=== PATIENT | male | born 1960 | race African-American/Black ===

== ENCOUNTER 2016-12-16 13:42 | Inpatient (IN) | payer SELFPAY ==
[~2016-12-16] VITALS: Ht 185.4 cm; Wt 99.8 kg
[2016-12-16 15:13] VITALS: BP 137/90
[2016-12-16] MEDS ORDERED: LISI1TAB5 PO (15:33)
[2016-12-16 16:19] LABS: BASO % 1 % (0-3); EOS % 1 % (0-3); HEMATOCRIT 39.3 % (39.0-53.0); HEMOGLOBIN 13.1 g/dL (13.0-17.5); LYMPH # 1.8 x10^3/uL (1.0-4.8); LYMPH % 20 % (24-48); MEAN CORPUSCULAR HEMOGLOBIN 30 pg (25-35); MEAN CORPUSCULAR HGB CONC 33 g/dL (31-37); MEAN CORPUSCULAR VOLUME 91 fL (79-100); MONO % 13 % (0-9); NEUT % 66 % (31-73); PLATELET COUNT 210 x10^3/uL (140-400); RED BLOOD COUNT 4.32 x10^6/uL (4.30-5.70); RED CELL DISTRIBUTION WIDTH 13.4 % (11.5-14.5); WHITE BLOOD COUNT 8.8 x10^3/uL (4.0-11.0)
[2016-12-16 16:35] LABS: CREATININE 1.2 mg/dL (0.7-1.3); GFR 76.1; POTASSIUM 3.8 mmol/L (3.5-5.1)
--- NOTE | 2016-12-16 16:36 | PDOC1 ---
History and Physical Date of Admission Date of Admission DATE: 12/16/16 TIME: 16:31 Identification/Chief Complaint Chief Complaint lower leg pain Problems: Source Source: Chart review, Patient History of Present Illness History of Present Illness direct admit from Dr. Fatemeh gilbert. He is recently released [facility], 2 weeks ago. The few days before that, he had a new tattoo done there , homemade tattoo on the left lateral calf. He is worried about the material used for ink, and feels that his body is rejecting it. He has a few days of worsening left lower pain with swelling, some surrrounding erythema, and skin eruption today. Abcess detected in surg clinic, large dressing now placed, pain improved pain 11/23 Past Medical History Cardiovascular: HTN Pulmonary: No pertinent hx GI: No pertinent hx Heme/Onc: No pertinent hx Hepatobiliary: No pertinent hx Psych: No pertinent hx Past Surgical History Past Surgical History: No pertinent history Family History Family History: Coronary Artery Disease, Heart Disease Family History: Parent Social History Smoke: No ALCOHOL: none Drugs: None Current Problem List Problem List Problems Medical Problems: (1) Cellulitis and abscess of leg Status: Acute Problems: Current Medications Current Medications Current Medications Vancomycin HCl (Vanco Per Pharmacy) 1 each PRN DAILY PRN [facility] SEE COMMENTS; Start 12/16/16 at 16:00 Active Scripts Active Reported Lisinopril-Hctz 20-12.5 Mg Tab (Lisinopril/Hydrochlorothiazide) 1 Each Tablet 1 Tab PO DAILY Allergies Allergies: Coded Allergies: No Known Drug Allergies (Unverified , 12/16/16) ROS General: YES: Chills, No: Appetite, Fatigue, Malaise, Night Sweats, Other PSYCHOLOGICAL ROS: No: Anxiety, Behavioral Disorder, Concentration difficultie , Decreased libido, Depression, Disorientation, Hallucinations, Hostility, Irritablity, Memory difficulties, Mood Swings, Obsessive thoughts, Other, Physical abuse, Sexual abuse, Sleep disturbances, Suicidal ideation Eyes: No Blurry vision, No Decreased vision, No Double vision, No Dry eyes, No Excessive tearing, No Eye Pain, No Itchy Eyes, No Loss of vision, No Other, No Photophobia, No Scotomata, No Uses contacts, No Uses glasses HEENT: No: Epistaxis, Heacaches, Hearing change, Nasal congestion, Nasal discharge, Oral lesions, Other, Sinus pain, Sneezing, Snoring, Sore Throat, Tinnitus, Vertigo, Visual Changes, Vocal changes Respiratory: No: Cough, Hemoptysis, Orthopnea, Other, Pleuritic Pain, SOB with excertion, Shortness of breath, Sputum Changes, Stridor, Tachypnea, Wheezing Cardiovascular: No Chest Pain, No Edema, No Lt Headedness, No Orthopnea, No Other, No Palpitations, No Paroxysmal Noc. Dyspnea Gastrointestinal: No Abdominal Pain, No Constipation, No Diarrhea, No Hematochezia, No Melena, No Nausea, No Other, No Vomiting Genitourinary: No , No , No , No , No , No , No , No Discharge, No Dysuria, No Flank Pain, No Frequency, No Hematuria, No Incontinence, No Other, No Pain, No Retention, No Urgency Musculoskeletal: Yes Muscle Pain, No Gait Disturbance, No Joint Pain, No Joint Stiffness, No Joint Swelling, No Other, No Pain In:, No Swelling In: Neurological: No Behavorial Changes, No Bowel/Bladder ControlChng, No Confusion , No Dizziness, No Gait Disturbance, No Headaches, No Impaired Coord/balance, No Memory Loss, No Numbness/Tingling, No Other, No Seizures, No Speech Problems , No Tremors, No Visual Changes, No Weakness Skin: Yes Rash, Yes Skin Lesion Changes Physical Exam General: Alert, Oriented X3, Cooperative, No acute distress HEENT: Atraumatic, PERRLA, EOMI Lungs: Clear to auscultation, Normal air movement Heart: S1S2, no gallops, no murmurs Abdomen: Normal bowel sounds, Soft, No tenderness Rectal Exam: not examined Extremities: No clubbing, No cyanosis, Normal pulses Skin: Other (erythema and swelling left of lower leg, tender w/ drainage) Neuro: Normal speech, Normal tone, Sensation intact Psych/Mental Status: Mental status NL Vitals Vitals Vital Signs Date Time Temp Pulse Resp B/P Pulse Ox O2 Delivery O2 Flow Rate FiO2 12/16/16 15:13 97.6 94 137/90 97 Room Air 97.6 Labs Labs Laboratory Tests Test 12/16/16 16:05 White Blood Count 8.8x10^3/uL (4.0-11.0) Red Blood Count 4.32x10^6/uL (4.30-5.70) Hemoglobin 13.1g/dL (13.0-17.5) Hematocrit 39.3% (39.0-53.0) Mean Corpuscular Volume 91fL (79-100) Mean Corpuscular Hemoglobin 30pg (25-35) Mean Corpuscular Hemoglobin Concent 33g/dL (31-37) Red Cell Distribution Width 13.4% (11.5-14.5) Platelet Count 210x10^3/uL (140-400) Neutrophils (%) (Auto) 66% (31-73) Lymphocytes (%) (Auto) 20% (24-48) Monocytes (%) (Auto) 13% (0-9) Eosinophils (%) (Auto) 1% (0-3) Basophils (%) (Auto) 1% (0-3) Neutrophils # (Auto) 5.8x10^3uL (1.8-7.7) Lymphocytes # (Auto) 1.8x10^3/uL (1.0-4.8) Monocytes # (Auto) 1.2x10^3/uL (0.0-1.1) Eosinophils # (Auto) 0.0x10^3/uL (0.0-0.7) Basophils # (Auto) 0.0x10^3/uL (0.0-0.2) Laboratory Tests Test 12/16/16 16:05 White Blood Count 8.8x10^3/uL (4.0-11.0) Red Blood Count 4.32x10^6/uL (4.30-5.70) Hemoglobin 13.1g/dL (13.0-17.5) Hematocrit 39.3% (39.0-53.0) Mean Corpuscular Volume 91fL (79-100) Mean Corpuscular Hemoglobin 30pg (25-35) Mean Corpuscular Hemoglobin Concent 33g/dL (31-37) Red Cell Distribution Width 13.4% (11.5-14.5) Platelet Count 210x10^3/uL (140-400) Neutrophils (%) (Auto) 66% (31-73) Lymphocytes (%) (Auto) 20% (24-48) Monocytes (%) (Auto) 13% (0-9) Eosinophils (%) (Auto) 1% (0-3) Basophils (%) (Auto) 1% (0-3) Neutrophils # (Auto) 5.8x10^3uL (1.8-7.7) Lymphocytes # (Auto) 1.8x10^3/uL (1.0-4.8) Monocytes # (Auto) 1.2x10^3/uL (0.0-1.1) Eosinophils # (Auto) 0.0x10^3/uL (0.0-0.7) Basophils # (Auto) 0.0x10^3/uL (0.0-0.2) VTE Prophylaxis Ordered VTE Prophylaxis Devices: No VTE Pharmacological Prophylaxi: No Assessment/Plan Assessment/Plan cellulitis with abcess, left lateral calf check labs blood cx if febrile surg consult to follow start IV vanco per pharmacy admit RACHAEL ALONSO MD December 16, 2016 16:36
[2016-12-16] MEDS ORDERED: VANCOMYCIN 2 GM in IV NORMAL SALINE 500ML BAG 500 ML IV ONE (17:30)
--- NOTE | 2016-12-16 17:52 | PDOC2 ---
CONSULT Date of Consult Date of Consult DATE: 12/16/16 TIME: 17:49 Reason for Consult Reason for Consult: left leg abscess Identification/Chief Complaint Chief Complaint leg redness Source Source: Patient History of Present Illness Reason for Visit: 56 yo male whom I saw in the office earlier today with 1-2 week hx of worsening left leg redness, swelling and pain. exam c/w cellulitis and abscess. admitted for iv abx and i and d. see my office note for more details. Past Medical History Cardiovascular: HTN Pulmonary: No pertinent hx GI: No pertinent hx Heme/Onc: No pertinent hx Hepatobiliary: No pertinent hx Psych: No pertinent hx Past Surgical History Past Surgical History: No pertinent history Family History Family History: Coronary Artery Disease, Heart Disease Social History Social History: Parent No ALCOHOL: none Drugs: None Current Problem List Problem List Problems Medical Problems: (1) Cellulitis and abscess of leg Status: Acute Current Medications Current Medications Current Medications Vancomycin HCl 1 each 1 each PRN DAILY PRN MC SEE COMMENTS; Start 12/16/16 at 16 :00 Vancomycin HCl/ Sodium Chloride (Iv Sodium Chloride 0.9% 500ml Bag) 500 ml @ 250 mls/hr 1X ONCE IV ; Start 12/16/16 at 17:30; Stop 12/16/16 at 19:29 Active Scripts Active Reported Lisinopril-Hctz 20-12.5 Mg Tab (Lisinopril/Hydrochlorothiazide) 1 Each Tablet 1 Tab PO DAILY Allergies Allergies: Coded Allergies: No Known Drug Allergies (Unverified , 12/16/16) Physical Exam General: Oriented X3, Cooperative Extremities: Other (left leg with extensive erythema, induration, fluctuance lateral lower leg.) Vitals VITALS Vital Signs Date Time Temp Pulse Resp B/P Pulse Ox O2 Delivery O2 Flow Rate FiO2 12/16/16 16:50 Room Air 12/16/16 15:13 97.6 94 137/90 97 97.6 Labs Labs Laboratory Tests Test 12/16/16 16:05 White Blood Count 8.8x10^3/uL (4.0-11.0) Red Blood Count 4.32x10^6/uL (4.30-5.70) Hemoglobin 13.1g/dL (13.0-17.5) Hematocrit 39.3% (39.0-53.0) Mean Corpuscular Volume 91fL (79-100) Mean Corpuscular Hemoglobin 30pg (25-35) Mean Corpuscular Hemoglobin Concent 33g/dL (31-37) Red Cell Distribution Width 13.4% (11.5-14.5) Platelet Count 210x10^3/uL (140-400) Neutrophils (%) (Auto) 66% (31-73) Lymphocytes (%) (Auto) 20% (24-48) Monocytes (%) (Auto) 13% (0-9) Eosinophils (%) (Auto) 1% (0-3) Basophils (%) (Auto) 1% (0-3) Neutrophils # (Auto) 5.8x10^3uL (1.8-7.7) Lymphocytes # (Auto) 1.8x10^3/uL (1.0-4.8) Monocytes # (Auto) 1.2x10^3/uL (0.0-1.1) Eosinophils # (Auto) 0.0x10^3/uL (0.0-0.7) Basophils # (Auto) 0.0x10^3/uL (0.0-0.2) Sodium Level 136mmol/L (136-145) Potassium Level 3.8mmol/L (3.5-5.1) Chloride Level 101mmol/L (98-107) Carbon Dioxide Level 26mmol/L (21-32) Anion Gap 9 (6-14) Blood Urea Nitrogen 12mg/dL (8-26) Creatinine 1.2mg/dL (0.7-1.3) Estimated GFR (Cockcroft-Gault) 76.1 Glucose Level 98mg/dL (70-99) Calcium Level 10.0mg/dL (8.5-10.1) Laboratory Tests Test 12/16/16 16:05 White Blood Count 8.8x10^3/uL (4.0-11.0) Red Blood Count 4.32x10^6/uL (4.30-5.70) Hemoglobin 13.1g/dL (13.0-17.5) Hematocrit 39.3% (39.0-53.0) Mean Corpuscular Volume 91fL (79-100) Mean Corpuscular Hemoglobin 30pg (25-35) Mean Corpuscular Hemoglobin Concent 33g/dL (31-37) Red Cell Distribution Width 13.4% (11.5-14.5) Platelet Count 210x10^3/uL (140-400) Neutrophils (%) (Auto) 66% (31-73) Lymphocytes (%) (Auto) 20% (24-48) Monocytes (%) (Auto) 13% (0-9) Eosinophils (%) (Auto) 1% (0-3) Basophils (%) (Auto) 1% (0-3) Neutrophils # (Auto) 5.8x10^3uL (1.8-7.7) Lymphocytes # (Auto) 1.8x10^3/uL (1.0-4.8) Monocytes # (Auto) 1.2x10^3/uL (0.0-1.1) Eosinophils # (Auto) 0.0x10^3/uL (0.0-0.7) Basophils # (Auto) 0.0x10^3/uL (0.0-0.2) Sodium Level 136mmol/L (136-145) Potassium Level 3.8mmol/L (3.5-5.1) Chloride Level 101mmol/L (98-107) Carbon Dioxide Level 26mmol/L (21-32) Anion Gap 9 (6-14) Blood Urea Nitrogen 12mg/dL (8-26) Creatinine 1.2mg/dL (0.7-1.3) Estimated GFR (Cockcroft-Gault) 76.1 Glucose Level 98mg/dL (70-99) Calcium Level 10.0mg/dL (8.5-10.1) Assessment/Plan Assessment/Plan left lower leg abscess and cellulitis. agree with iv abx and plan I and D in OR tomorrow. r/b d/w him in office earlier today. LORENE CACERES MD December 16, 2016 17:52
[2016-12-16] MEDS ORDERED: ONDANSETRON PF 4 MG/2 ML VIAL. IV PRN (18:00)
[2016-12-16] MEDS ORDERED: HYDROmorphone 2 MG/ML VIAL IVP PRN (18:00)
[2016-12-16] MEDS ORDERED: oxyCODONE/APAP 5/325 1 TAB TABLET PO PRN (18:00)
[2016-12-16] MEDS: VANCOMYCIN PER PHARMACY MC PRN (18:31)
[2016-12-16 19:20] VITALS: BP 117/81
[2016-12-16 23:29] VITALS: BP 138/78
[2016-12-17] VITALS (12 sets, daily range): BP systolic 13–130; BP diastolic 66–84
[2016-12-17] MEDS: VANCOMYCIN 1.5 GM in IV NORMAL SALINE 500ML BAG 500 ML IV SCH ×2 (06:00→18:13)
[2016-12-17] MEDS ORDERED: BUPIVAC MPF-EPI 0.5%-1:200000 30 ML VIAL. ONE (07:07)
--- NOTE | 2016-12-17 07:32 | ACF ---
Admission Forms Criteria CELLULITIS Clinical Indications for Admission to Inpatient Care (Place 'X' for any and all applicable criteria): Admission is indicated for ANY ONE of the following(1)(2)(3)(4)(5): [X]I. Limb-threatening infection [ ]II. High-risk comorbid condition as indicated by ANY ONE of the following: [ ]a) Uncontrolled diabetes (eg, HbA1c greater than 10% (0.1)) [ ]b) Cirrhosis [ ]c) Neutropenia [ ]d) Asplenia [ ]e) Immunosuppression [ ]f) Symptomatic heart failure [ ]III. Failure of outpatient therapy as indicated by ALL of the following: [ ]a) Progression or no improvement after adequate trial (minimum of 48 hours, with longer period for stable lower extremity infection) [ ]b) Adequate antibiotic regimen as indicated by use of ANY ONE of the following: [ ]i) First-generation cephalosporin (e.g., cephalexin) [ ]ii) Antistaphylococcal penicillin (e.g., dicloxacillin) [ ]iii) Penicillin-allergic patient regimen (clindamycin, extended-spectrum fluoroquinolone, or doxycycline) [ ]iv) Resistant organism (eg, methicillin-resistant Staphylococcus aureus) regimen (6) [ ]c) Outpatient intravenous therapy regimen is not appropriate due to ANY ONE of the following. (7)(8)(9)(10): [ ]i) It was tried and was not successful (eg, progression of infection). [ ]ii) It is not available or cannot be arranged in a clinically appropriate time frame (e.g., the next day). [ ]iii) Clinical presentation (eg, acuity of infection, rapidity of progression, confirmed or suspected bacteremia) is judged to require ALL of the following: [ ]1) Immediate initiation of intravenous therapy ( eg, cannot wait for next day) [ ]2) Intensity of patient monitoring and observation (eg, vital sign measurement, checks for infection progression) that cannot be provided at other than inpatient level of care [ ]IV. Mental status changes [ ]V. Bacteremia [ ]. Hemodynamic instability [ ]VII. Suspected necrotizing soft tissue infection (e.g., gas in tissue)(11)( 12) [ ]VIII. Orbital infection (13)(14) [ ]IX. Associated surgical procedure (e.g., abscess drainage, debridement) not amenable to outpatient, emergency department, or observation care [ ]X. Cutaneous gangrene [ ]XI. High fever (temperature greater than 39.5 degrees C (103.1 degrees F) (oral)) not responsive to outpatient, emergency department, or observation care therapy [ ]XIII. Inpatient admission required rather than observation care (Also use Cellulitis: Observation Care as appropriate) because of ANY ONE of the following : [ ]a) Periorbital or perineal infection that is severe or worsening [ ]b) Severe pain requiring acute inpatient management [ ]c) IV fluid to replace significant ongoing (e.g., for over 24 hours) losses (greater than 3L/m2 per day) [ ]d) Compartment syndrome monitoring (17) [ ]e) Strict or protective (eg, laminar flow) isolation [ ]f) Urgent debridement or skin grafting [ ]g) Bone or joint debridement [ ]h) Immediate inpatient surgery [ ]i) Other condition, treatment or monitoring requiring inpatient admission Extended stay beyond goal length of stay may be needed for (1)(18): [ ]a) Necrotizing soft tissue infection or fasciitis [ ]b) Gram-negative infection [ ]c) Methicillin-resistant Staphylococcal aureus (MRSA) infection [ ]d) Peripheral venous insufficiency with cellulitis [ ]e) Extensive edema [ ]f) Sepsis or continued Hemodynamic instability [ ]g) Continued high fever or mental status change [ ]h) Bacteremia [ ]i) Active serious comorbid conditions ( eg, heart failure, renal insufficiency) The original [employer] content created by [employer] has been revised. The portions of the content which have been revised are identified through the use of italic text or in bold, and [facility] has neither reviewed nor approved the modified material. All other unmodified content is copyright [facility] [employer] Please see references footnoted in the original [employer] [employer] edition 2016 Admission Criteria Met?: Yes ISAI WILKINS December 17, 2016 07:32
[2016-12-17] MEDS ORDERED: IV RINGERS,LACTATED 1000ML 1,000 ML IV SCH (09:47)
[2016-12-17] MEDS ORDERED: fentaNYL PF VIAL 100 MCG/2 ML VIAL IV PRN ×2 (10:00)
[2016-12-17] MEDS ORDERED: HYDROmorphone 2 MG/ML VIAL IV PRN (10:00)
[2016-12-17] MEDS ORDERED: MORPHINE SULFATE 2 MG/ML DISP.SYRIN. IV PRN (10:00)
[2016-12-17] MEDS ORDERED: ONDANSETRON PF 4 MG/2 ML VIAL. IV PRN ×2 (10:00→11:00)
[2016-12-17] MEDS ORDERED: LIDOCAINE 1% 1 ML SYRINGE. ID PRN (10:00)
[2016-12-17] MEDS ORDERED: PROCHLORPERAZINE 10 MG/2 ML VIAL. IV PRN (10:00)
[2016-12-17] MEDS ORDERED: ACETAMINOPHEN 325 MG TABLET. PO PRN (11:00)
[2016-12-17] MEDS ORDERED: hydrALAZINE 20 MG/ML VIAL. IVP PRN (11:00)
--- NOTE | 2016-12-17 11:01 | PDOC ---
PROGRESS NOTES Chief Complaint Chief Complaint cellulitis with abcess, left lateral calf HTN plan: fu with sx, i and d on 12/17 cont vanco for now, fu cx hold HTN meds, pain control History of Present Illness History of Present Illness left leg pain Vitals Vitals Vital Signs Date Time Temp Pulse Resp B/P (MAP) Pulse Ox O2 Delivery O2 Flow Rate FiO2 12/17/16 08:00 Room Air 12/17/16 07:15 98.5 84 20 114/72 (86) 98 98.5 Physical Exam General: Oriented X3, Cooperative Heart: Regular rate, Normal S1 Lungs: Clear Abdomen: Normal bowel sounds, Soft, No tenderness Extremities: Other (left leg with extensive erythema, induration, fluctuance lateral lower leg.) Skin: Other (erythema and swelling left of lower leg, tender w/ drainage) Labs LABS Laboratory Tests Test 12/16/16 16:05 White Blood Count 8.8 x10^3/uL (4.0-11.0) Red Blood Count 4.32 x10^6/uL (4.30-5.70) Hemoglobin 13.1 g/dL (13.0-17.5) Hematocrit 39.3 % (39.0-53.0) Mean Corpuscular Volume 91 fL (79-100) Mean Corpuscular Hemoglobin 30 pg (25-35) Mean Corpuscular Hemoglobin Concent 33 g/dL (31-37) Red Cell Distribution Width 13.4 % (11.5-14.5) Platelet Count 210 x10^3/uL (140-400) Neutrophils (%) (Auto) 66 % (31-73) Lymphocytes (%) (Auto) 20 % (24-48) Monocytes (%) (Auto) 13 % (0-9) Eosinophils (%) (Auto) 1 % (0-3) Basophils (%) (Auto) 1 % (0-3) Neutrophils # (Auto) 5.8 x10^3uL (1.8-7.7) Lymphocytes # (Auto) 1.8 x10^3/uL (1.0-4.8) Monocytes # (Auto) 1.2 x10^3/uL (0.0-1.1) Eosinophils # (Auto) 0.0 x10^3/uL (0.0-0.7) Basophils # (Auto) 0.0 x10^3/uL (0.0-0.2) Sodium Level 136 mmol/L (136-145) Potassium Level 3.8 mmol/L (3.5-5.1) Chloride Level 101 mmol/L (98-107) Carbon Dioxide Level 26 mmol/L (21-32) Anion Gap 9 (6-14) Blood Urea Nitrogen 12 mg/dL (8-26) Creatinine 1.2 mg/dL (0.7-1.3) Estimated GFR (Cockcroft-Gault) 76.1 Glucose Level 98 mg/dL (70-99) Calcium Level 10.0 mg/dL (8.5-10.1) Review of Systems Review of Systems no fever, chills, sob or chest pain Assessment and Plan Assessmemt and Plan Problems Medical Problems: (1) Cellulitis and abscess of leg Status: Acute Problems: Comment Review of Relevant I have reviewed the following items gita (where applicable) has been applied. Labs Laboratory Tests Test 12/16/16 16:05 White Blood Count 8.8 x10^3/uL (4.0-11.0) Red Blood Count 4.32 x10^6/uL (4.30-5.70) Hemoglobin 13.1 g/dL (13.0-17.5) Hematocrit 39.3 % (39.0-53.0) Mean Corpuscular Volume 91 fL (79-100) Mean Corpuscular Hemoglobin 30 pg (25-35) Mean Corpuscular Hemoglobin Concent 33 g/dL (31-37) Red Cell Distribution Width 13.4 % (11.5-14.5) Platelet Count 210 x10^3/uL (140-400) Neutrophils (%) (Auto) 66 % (31-73) Lymphocytes (%) (Auto) 20 % (24-48) Monocytes (%) (Auto) 13 % (0-9) Eosinophils (%) (Auto) 1 % (0-3) Basophils (%) (Auto) 1 % (0-3) Neutrophils # (Auto) 5.8 x10^3uL (1.8-7.7) Lymphocytes # (Auto) 1.8 x10^3/uL (1.0-4.8) Monocytes # (Auto) 1.2 x10^3/uL (0.0-1.1) Eosinophils # (Auto) 0.0 x10^3/uL (0.0-0.7) Basophils # (Auto) 0.0 x10^3/uL (0.0-0.2) Sodium Level 136 mmol/L (136-145) Potassium Level 3.8 mmol/L (3.5-5.1) Chloride Level 101 mmol/L (98-107) Carbon Dioxide Level 26 mmol/L (21-32) Anion Gap 9 (6-14) Blood Urea Nitrogen 12 mg/dL (8-26) Creatinine 1.2 mg/dL (0.7-1.3) Estimated GFR (Cockcroft-Gault) 76.1 Glucose Level 98 mg/dL (70-99) Calcium Level 10.0 mg/dL (8.5-10.1) Laboratory Tests Test 12/16/16 16:05 White Blood Count 8.8 x10^3/uL (4.0-11.0) Red Blood Count 4.32 x10^6/uL (4.30-5.70) Hemoglobin 13.1 g/dL (13.0-17.5) Hematocrit 39.3 % (39.0-53.0) Mean Corpuscular Volume 91 fL (79-100) Mean Corpuscular Hemoglobin 30 pg (25-35) Mean Corpuscular Hemoglobin Concent 33 g/dL (31-37) Red Cell Distribution Width 13.4 % (11.5-14.5) Platelet Count 210 x10^3/uL (140-400) Neutrophils (%) (Auto) 66 % (31-73) Lymphocytes (%) (Auto) 20 % (24-48) Monocytes (%) (Auto) 13 % (0-9) Eosinophils (%) (Auto) 1 % (0-3) Basophils (%) (Auto) 1 % (0-3) Neutrophils # (Auto) 5.8 x10^3uL (1.8-7.7) Lymphocytes # (Auto) 1.8 x10^3/uL (1.0-4.8) Monocytes # (Auto) 1.2 x10^3/uL (0.0-1.1) Eosinophils # (Auto) 0.0 x10^3/uL (0.0-0.7) Basophils # (Auto) 0.0 x10^3/uL (0.0-0.2) Sodium Level 136 mmol/L (136-145) Potassium Level 3.8 mmol/L (3.5-5.1) Chloride Level 101 mmol/L (98-107) Carbon Dioxide Level 26 mmol/L (21-32) Anion Gap 9 (6-14) Blood Urea Nitrogen 12 mg/dL (8-26) Creatinine 1.2 mg/dL (0.7-1.3) Estimated GFR (Cockcroft-Gault) 76.1 Glucose Level 98 mg/dL (70-99) Calcium Level 10.0 mg/dL (8.5-10.1) Medications Current Medications Vancomycin HCl (Vanco Per Pharmacy) 1 each PRN DAILY PRN MC SEE COMMENTS Last administered on 12/16/16 18:31; Start 12/16/16 at 16:00 Vancomycin HCl 2 gm/Sodium Chloride 500 ml @ 250 mls/hr 1X ONCE IV Last administered on 12/16/16 18:22; Start 12/16/16 at 17:30; Stop 12/16/16 at 19:29; Status DC Oxycodone/ Acetaminophen (Percocet 5/325) 2 tab PRN Q4HRS PRN PO PAIN; Start at 18:00 Hydromorphone HCl (Dilaudid) 0.4 mg PRN Q4HRS PRN IVP PAIN; Start 12/16/16 at 18 :00 Ondansetron HCl (Zofran) 4 mg PRN Q6HRS PRN IV NAUSEA/VOMITING; Start 12/16/16 at 18:00 Vancomycin HCl 1.5 gm/Sodium Chloride 500 ml @ 250 mls/hr Q12H IV ; Start at 06:00 Vancomycin HCl 1 each 1X ONCE MC ; Start 12/18/16 at 05:30; Stop 12/18/16 at 05: 31 Bupivacaine HCl/ Epinephrine Bitart (Sensorcain-Mpf Epi 0.5%-1:[id number]) 30 ml STK -MED ONCE .ROUTE ; Start 12/17/16 at 07:07; Stop 12/17/16 at 07:08; Status DC Sodium Hypochlorite (Dakin'S 1/2 Strength) 1 idalmis 1X ONCE TP ; Start 12/17/16 at 11:45; Stop 12/17/16 at 11:46 Ondansetron HCl (Zofran) 4 mg PRN Q6HRS PRN IV NAUSEA/VOMITING; Start 12/17/16 at 10:00; Stop 12/17/16 at 10:01; Status DC Fentanyl Citrate (Fentanyl 2ml Vial) 25 mcg PRN Q5MIN PRN IV MILD PAIN; Start 12/17/16 at 10:00; Stop 12/17/16 at 18:00 Fentanyl Citrate (Fentanyl 2ml Vial) 50 mcg PRN Q5MIN PRN IV MODERATE PAIN; Start 12/17/16 at 10:00; Stop 12/17/16 at 18:00 Morphine Sulfate 1 mg PRN Q10MIN PRN IV SEVERE PAIN; Start 12/17/16 at 10:00; Stop 12/17/16 at 18:00 Lidocaine HCl 2 ml PRN 1X PRN ID PRIOR TO IV START; Start 12/17/16 at 10:00; Stop 12/17/16 at 18:00 Hydromorphone HCl (Dilaudid) 0.5 mg PRN Q10MIN PRN IV SEV PAIN, Second choice; Start 12/17/16 at 10:00; Stop 12/17/16 at 18:00 Prochlorperazine Edisylate (Compazine) 5 mg PACU PRN PRN IV NAUSEA, MRX1; Start 12/17/16 at 10:00; Stop 12/17/16 at 18:00 Active Scripts Active Reported Lisinopril-Hctz 20-12.5 Mg Tab (Lisinopril/Hydrochlorothiazide) 1 Each Tablet 1 Tab PO DAILY Vitals/I & O Vital Sign - Last 24 Hours 12/16/16 12/16/16 12/16/16 12/16/16 15:13 16:50 19:20 20:00 Temp 97.6 98.8 97.6 98.8 Pulse 94 100 Resp 20 B/P (MAP) 137/90 (106) 117/81 (93) Pulse Ox 97 94 O2 Delivery Room Air Room Air Room Air Room Air 12/16/16 12/17/16 12/17/16 12/17/16 23:29 02:47 07:15 08:00 Temp 99.3 99.1 98.5 99.3 99.1 98.5 Pulse 101 99 84 Resp 18 18 20 B/P (MAP) 138/78 (98) 123/84 (97) 114/72 (86) Pulse Ox 96 96 98 O2 Delivery Room Air Room Air Room Air Room Air Intake and Output 12/16/16 12/16/16 12/17/16 15:00 23:00 07:00 Intake Total 250 ml 240 ml Balance 250 ml 240 ml MABEL BACON MD December 17, 2016 11:01
[2016-12-17] MEDS ORDERED: DESFLURANE 61 TO 120 MINUTES IH ONE (11:03)
[2016-12-17] MEDS ORDERED: PROPOFOL 20 ML IV ONE ×2 (11:04→12:03)
[2016-12-17] MEDS ORDERED: fentaNYL PF VIAL 100 MCG/2 ML VIAL ONE ×2 (11:04→12:07)
[2016-12-17] MEDS ORDERED: LIDOCAINE 2% 100 MG/5 ML SYRINGE. ONE (11:04)
[2016-12-17] MEDS ORDERED: MIDAZOLAM HCL/PF 2 MG/2 ML VIAL. ONE (11:04)
[2016-12-17] MEDS ORDERED: DEXAMETHASONE SOD PHOS 20 MG/5 ML VIAL. ONE (11:04)
[2016-12-17] MEDS ORDERED: SODIUM HYPOCHLORITE 0.25% 473 ML BOTTLE. TP ONE (11:45)
--- NOTE | 2016-12-17 12:45 | PDOC ---
BRIEF OPERATIVE NOTE Pre-Op Diagnosis left leg abscess/cellulitis i and d and excisional debridement of left leg abscess sonal caceres gen ivf 500 ebl 10 socrates well to rr stable. LORENE CACERES MD December 17, 2016 12:45
[2016-12-17] MEDS: VANCOMYCIN PER PHARMACY MC PRN (13:49)
--- NOTE | 2016-12-17 15:13 | OP ---
DATE OF SURGERY: 12/17/2016 PREOPERATIVE DIAGNOSIS: Left leg cellulitis and abscess. POSTOPERATIVE DIAGNOSIS: Left leg cellulitis and abscess. PROCEDURE: Incision and drainage of left leg abscess as well as excisional debridement of the 2 x 2 cm area of left leg abscess to include skin and subcutaneous fat. SURGEON: Lorene Caceres MD. ANESTHESIA: General. ESTIMATED BLOOD LOSS: 10 mL. IV FLUIDS: 500 mL. INDICATIONS: The patient is a 56-year-old male who presented to the office yesterday with an extensive cellulitis of his left leg as well as an abscess and draining wound. He is here for debridement and drainage. DESCRIPTION OF PROCEDURE: After informed consent was obtained, the site had been marked. He was taken to the operating room and placed in supine position. After adequate induction of general anesthesia, he was prepped and draped in the usual sterile fashion. The skin overlying the abscess was injected with local anesthetic, and the necrotic area was excised sharply. It measured about 2 cm x 2 cm. It included skin and subcutaneous fat. Cultures were obtained, and the wound was explored and the incision extended proximally and distally. The abscess did not extend into the muscle, and it did not have significant tracking or tunneling. At this point, it seemed as though he had an extensive associated cellulitis but no other drainable abscess cavity identifiable. The tissue planes were intact. At this point, the wound was hemostatic. It was irrigated. It remained hemostatic. It was then packed with Kerlix slightly moistened in Dakin's. Sterile dressings over that were placed. He tolerated the procedure well. There were no apparent complications. He was then transferred in stable condition to the Recovery Room. LORENE CACREES MD DR: CANDELARIO/curt JOB#: [id number] / [id number] RACHAEL Darnell MD
[2016-12-18 03:15] VITALS: BP 122/65
[2016-12-18 05:30] LABS: BASO # 0.1 x10^3/uL (0.0-0.2); BASO % 1 % (0-3); EOS % 0 % (0-3); HEMATOCRIT 37.8 % (39.0-53.0); HEMOGLOBIN 12.4 g/dL (13.0-17.5); LYMPH # 1.5 x10^3/uL (1.0-4.8); LYMPH % 16 % (24-48); MEAN CORPUSCULAR HEMOGLOBIN 30 pg (25-35); MEAN CORPUSCULAR HGB CONC 33 g/dL (31-37); MEAN CORPUSCULAR VOLUME 92 fL (79-100); MONO % 8 % (0-9); NEUT % 75 % (31-73); PLATELET COUNT 232 x10^3/uL (140-400); RED BLOOD COUNT 4.14 x10^6/uL (4.30-5.70); RED CELL DISTRIBUTION WIDTH 13.5 % (11.5-14.5); WHITE BLOOD COUNT 9.4 x10^3/uL (4.0-11.0)
[2016-12-18 05:41] LABS: CALCIUM 9.8 mg/dL (8.5-10.1); CREATININE 1.1 mg/dL (0.7-1.3); GFR 84.1; POTASSIUM 4.3 mmol/L (3.5-5.1)
[2016-12-18] MEDS: VANCOMYCIN PER PHARMACY MC PRN (06:10)
[2016-12-18] MEDS: VANCOMYCIN 1.5 GM in IV NORMAL SALINE 500ML BAG 500 ML IV SCH ×2 (06:17→18:24)
[2016-12-18 07:00] VITALS: BP 143/101
--- NOTE | 2016-12-18 09:51 | PDOC ---
LOTUS EMTZ HEAD OF LOSS PREVENTION 12/18/16 0951: SURGICAL PROGRESS NOTE Subjective leg sore ready to take a shower asked how the wound heals, if it wound need closed--i explained process of healing from in to out with wound packing Vital Signs Vital Signs Date Time Temp Pulse Resp B/P (MAP) Pulse Ox O2 Delivery O2 Flow Rate FiO2 12/18/16 07:20 Room Air 12/18/16 07:00 97.9 83 16 143/101 (115) 97 97.9 12/17/16 12:43 10 I&O Intake and Output 12/18/16 07:00 Intake Total 2120 ml Output Total 3 ml Balance 2117 ml Intake Oral 1070 ml IV Total 1050 ml Output Urine Total 3 ml # Voids 3 General: Alert, Oriented X3, Cooperative, No acute distress Skin: Other (LLE wound bed clean, surrounding cellulitis present ) Labs Laboratory Tests Test 12/16/16 16:05 12/18/16 05:24 White Blood Count 8.8 x10^3/uL (4.0-11.0) 9.4 x10^3/uL (4.0-11.0) Red Blood Count 4.32 x10^6/uL (4.30-5.70) 4.14 x10^6/uL (4.30-5.70) Hemoglobin 13.1 g/dL (13.0-17.5) 12.4 g/dL (13.0-17.5) Hematocrit 39.3 % (39.0-53.0) 37.8 % (39.0-53.0) Mean Corpuscular Volume 91 fL (79-100) 92 fL (79-100) Mean Corpuscular Hemoglobin 30 pg (25-35) 30 pg (25-35) Mean Corpuscular Hemoglobin Concent 33 g/dL (31-37) 33 g/dL (31-37) Red Cell Distribution Width 13.4 % (11.5-14.5) 13.5 % (11.5-14.5) Platelet Count 210 x10^3/uL (140-400) 232 x10^3/uL (140-400) Neutrophils (%) (Auto) 66 % (31-73) 75 % (31-73) Lymphocytes (%) (Auto) 20 % (24-48) 16 % (24-48) Monocytes (%) (Auto) 13 % (0-9) 8 % (0-9) Eosinophils (%) (Auto) 1 % (0-3) 0 % (0-3) Basophils (%) (Auto) 1 % (0-3) 1 % (0-3) Neutrophils # (Auto) 5.8 x10^3uL (1.8-7.7) 7.1 x10^3uL (1.8-7.7) Lymphocytes # (Auto) 1.8 x10^3/uL (1.0-4.8) 1.5 x10^3/uL (1.0-4.8) Monocytes # (Auto) 1.2 x10^3/uL (0.0-1.1) 0.8 x10^3/uL (0.0-1.1) Eosinophils # (Auto) 0.0 x10^3/uL (0.0-0.7) 0.0 x10^3/uL (0.0-0.7) Basophils # (Auto) 0.0 x10^3/uL (0.0-0.2) 0.1 x10^3/uL (0.0-0.2) Sodium Level 136 mmol/L (136-145) 140 mmol/L (136-145) Potassium Level 3.8 mmol/L (3.5-5.1) 4.3 mmol/L (3.5-5.1) Chloride Level 101 mmol/L (98-107) 106 mmol/L (98-107) Carbon Dioxide Level 26 mmol/L (21-32) 25 mmol/L (21-32) Anion Gap 9 (6-14) 9 (6-14) Blood Urea Nitrogen 12 mg/dL (8-26) 15 mg/dL (8-26) Creatinine 1.2 mg/dL (0.7-1.3) 1.1 mg/dL (0.7-1.3) Estimated GFR (Cockcroft-Gault) 76.1 84.1 Glucose Level 98 mg/dL (70-99) 131 mg/dL (70-99) Calcium Level 10.0 mg/dL (8.5-10.1) 9.8 mg/dL (8.5-10.1) Vancomycin Level Trough 10.7 mcg/mL (10.0-20.0) Vancomycin Last Dose Date 12/17/16 Vancomycin Last Dose Time 1800 Laboratory Tests Test 12/18/16 05:24 White Blood Count 9.4 x10^3/uL (4.0-11.0) Red Blood Count 4.14 x10^6/uL (4.30-5.70) Hemoglobin 12.4 g/dL (13.0-17.5) Hematocrit 37.8 % (39.0-53.0) Mean Corpuscular Volume 92 fL (79-100) Mean Corpuscular Hemoglobin 30 pg (25-35) Mean Corpuscular Hemoglobin Concent 33 g/dL (31-37) Red Cell Distribution Width 13.5 % (11.5-14.5) Platelet Count 232 x10^3/uL (140-400) Neutrophils (%) (Auto) 75 % (31-73) Lymphocytes (%) (Auto) 16 % (24-48) Monocytes (%) (Auto) 8 % (0-9) Eosinophils (%) (Auto) 0 % (0-3) Basophils (%) (Auto) 1 % (0-3) Neutrophils # (Auto) 7.1 x10^3uL (1.8-7.7) Lymphocytes # (Auto) 1.5 x10^3/uL (1.0-4.8) Monocytes # (Auto) 0.8 x10^3/uL (0.0-1.1) Eosinophils # (Auto) 0.0 x10^3/uL (0.0-0.7) Basophils # (Auto) 0.1 x10^3/uL (0.0-0.2) Sodium Level 140 mmol/L (136-145) Potassium Level 4.3 mmol/L (3.5-5.1) Chloride Level 106 mmol/L (98-107) Carbon Dioxide Level 25 mmol/L (21-32) Anion Gap 9 (6-14) Blood Urea Nitrogen 15 mg/dL (8-26) Creatinine 1.1 mg/dL (0.7-1.3) Estimated GFR (Cockcroft-Gault) 84.1 Glucose Level 131 mg/dL (70-99) Calcium Level 9.8 mg/dL (8.5-10.1) Vancomycin Level Trough 10.7 mcg/mL (10.0-20.0) Vancomycin Last Dose Date 12/17/16 Vancomycin Last Dose Time 1800 Problem List Problems Medical Problems: (1) Cellulitis and abscess of leg Status: Acute Assessment/Plan s/p I&D, excisional debridement LLE abscess continue daily wound care with dakins packings continue IV abx Problems: LORENE CACERES MD 12/18/16 1121: SURGICAL PROGRESS NOTE Assessment/Plan addendum i saw and examined him. the wound is clean but surrounding edema and erythema without much improvement. d/w pt and family--if cellulitis not improved with elevation and a couple more days of IV abx, then will need to ct extremity to eval for deeper infection not visible on exam or intra-operatively. Problems: LOTUS METZ APRN December 18, 2016 09:51 LORENE CACERES MD December 18, 2016 11:21
[2016-12-18 11:00] VITALS: BP 168/104
--- NOTE | 2016-12-18 12:14 | PDOC ---
PROGRESS NOTES Chief Complaint Chief Complaint cellulitis with abcess, left lateral calf HTN plan: fu with sx, i and d on 12/17 cont vanco for now, fu cx hold HTN meds, pain control History of Present Illness History of Present Illness left leg pain Vitals Vitals Vital Signs Date Time Temp Pulse Resp B/P (MAP) Pulse Ox O2 Delivery O2 Flow Rate FiO2 12/18/16 11:00 98.1 81 18 168/104 (125) 97 Room Air 98.1 12/17/16 12:43 10 Physical Exam General: Alert, Oriented X3, Cooperative, No acute distress Heart: Regular rate, Normal S1 Lungs: Clear Abdomen: Normal bowel sounds, Soft, No tenderness Extremities: Other (left leg with extensive erythema, induration, fluctuance lateral lower leg.) Skin: Other (LLE wound bed clean, surrounding cellulitis present ) Labs LABS Laboratory Tests Test 12/18/16 05:24 White Blood Count 9.4 x10^3/uL (4.0-11.0) Red Blood Count 4.14 x10^6/uL (4.30-5.70) Hemoglobin 12.4 g/dL (13.0-17.5) Hematocrit 37.8 % (39.0-53.0) Mean Corpuscular Volume 92 fL (79-100) Mean Corpuscular Hemoglobin 30 pg (25-35) Mean Corpuscular Hemoglobin Concent 33 g/dL (31-37) Red Cell Distribution Width 13.5 % (11.5-14.5) Platelet Count 232 x10^3/uL (140-400) Neutrophils (%) (Auto) 75 % (31-73) Lymphocytes (%) (Auto) 16 % (24-48) Monocytes (%) (Auto) 8 % (0-9) Eosinophils (%) (Auto) 0 % (0-3) Basophils (%) (Auto) 1 % (0-3) Neutrophils # (Auto) 7.1 x10^3uL (1.8-7.7) Lymphocytes # (Auto) 1.5 x10^3/uL (1.0-4.8) Monocytes # (Auto) 0.8 x10^3/uL (0.0-1.1) Eosinophils # (Auto) 0.0 x10^3/uL (0.0-0.7) Basophils # (Auto) 0.1 x10^3/uL (0.0-0.2) Sodium Level 140 mmol/L (136-145) Potassium Level 4.3 mmol/L (3.5-5.1) Chloride Level 106 mmol/L (98-107) Carbon Dioxide Level 25 mmol/L (21-32) Anion Gap 9 (6-14) Blood Urea Nitrogen 15 mg/dL (8-26) Creatinine 1.1 mg/dL (0.7-1.3) Estimated GFR (Cockcroft-Gault) 84.1 Glucose Level 131 mg/dL (70-99) Calcium Level 9.8 mg/dL (8.5-10.1) Vancomycin Level Trough 10.7 mcg/mL (10.0-20.0) Vancomycin Last Dose Date 12/17/16 Vancomycin Last Dose Time 1800 Review of Systems Review of Systems no n,.v.d Assessment and Plan Assessmemt and Plan Problems Medical Problems: (1) Cellulitis and abscess of leg Status: Acute Problems: Comment Review of Relevant I have reviewed the following items gita (where applicable) has been applied. Labs Laboratory Tests Test 12/16/16 16:05 12/18/16 05:24 White Blood Count 8.8 x10^3/uL (4.0-11.0) 9.4 x10^3/uL (4.0-11.0) Red Blood Count 4.32 x10^6/uL (4.30-5.70) 4.14 x10^6/uL (4.30-5.70) Hemoglobin 13.1 g/dL (13.0-17.5) 12.4 g/dL (13.0-17.5) Hematocrit 39.3 % (39.0-53.0) 37.8 % (39.0-53.0) Mean Corpuscular Volume 91 fL (79-100) 92 fL (79-100) Mean Corpuscular Hemoglobin 30 pg (25-35) 30 pg (25-35) Mean Corpuscular Hemoglobin Concent 33 g/dL (31-37) 33 g/dL (31-37) Red Cell Distribution Width 13.4 % (11.5-14.5) 13.5 % (11.5-14.5) Platelet Count 210 x10^3/uL (140-400) 232 x10^3/uL (140-400) Neutrophils (%) (Auto) 66 % (31-73) 75 % (31-73) Lymphocytes (%) (Auto) 20 % (24-48) 16 % (24-48) Monocytes (%) (Auto) 13 % (0-9) 8 % (0-9) Eosinophils (%) (Auto) 1 % (0-3) 0 % (0-3) Basophils (%) (Auto) 1 % (0-3) 1 % (0-3) Neutrophils # (Auto) 5.8 x10^3uL (1.8-7.7) 7.1 x10^3uL (1.8-7.7) Lymphocytes # (Auto) 1.8 x10^3/uL (1.0-4.8) 1.5 x10^3/uL (1.0-4.8) Monocytes # (Auto) 1.2 x10^3/uL (0.0-1.1) 0.8 x10^3/uL (0.0-1.1) Eosinophils # (Auto) 0.0 x10^3/uL (0.0-0.7) 0.0 x10^3/uL (0.0-0.7) Basophils # (Auto) 0.0 x10^3/uL (0.0-0.2) 0.1 x10^3/uL (0.0-0.2) Sodium Level 136 mmol/L (136-145) 140 mmol/L (136-145) Potassium Level 3.8 mmol/L (3.5-5.1) 4.3 mmol/L (3.5-5.1) Chloride Level 101 mmol/L (98-107) 106 mmol/L (98-107) Carbon Dioxide Level 26 mmol/L (21-32) 25 mmol/L (21-32) Anion Gap 9 (6-14) 9 (6-14) Blood Urea Nitrogen 12 mg/dL (8-26) 15 mg/dL (8-26) Creatinine 1.2 mg/dL (0.7-1.3) 1.1 mg/dL (0.7-1.3) Estimated GFR (Cockcroft-Gault) 76.1 84.1 Glucose Level 98 mg/dL (70-99) 131 mg/dL (70-99) Calcium Level 10.0 mg/dL (8.5-10.1) 9.8 mg/dL (8.5-10.1) Vancomycin Level Trough 10.7 mcg/mL (10.0-20.0) Vancomycin Last Dose Date 12/17/16 Vancomycin Last Dose Time 1800 Laboratory Tests Test 12/18/16 05:24 White Blood Count 9.4 x10^3/uL (4.0-11.0) Red Blood Count 4.14 x10^6/uL (4.30-5.70) Hemoglobin 12.4 g/dL (13.0-17.5) Hematocrit 37.8 % (39.0-53.0) Mean Corpuscular Volume 92 fL (79-100) Mean Corpuscular Hemoglobin 30 pg (25-35) Mean Corpuscular Hemoglobin Concent 33 g/dL (31-37) Red Cell Distribution Width 13.5 % (11.5-14.5) Platelet Count 232 x10^3/uL (140-400) Neutrophils (%) (Auto) 75 % (31-73) Lymphocytes (%) (Auto) 16 % (24-48) Monocytes (%) (Auto) 8 % (0-9) Eosinophils (%) (Auto) 0 % (0-3) Basophils (%) (Auto) 1 % (0-3) Neutrophils # (Auto) 7.1 x10^3uL (1.8-7.7) Lymphocytes # (Auto) 1.5 x10^3/uL (1.0-4.8) Monocytes # (Auto) 0.8 x10^3/uL (0.0-1.1) Eosinophils # (Auto) 0.0 x10^3/uL (0.0-0.7) Basophils # (Auto) 0.1 x10^3/uL (0.0-0.2) Sodium Level 140 mmol/L (136-145) Potassium Level 4.3 mmol/L (3.5-5.1) Chloride Level 106 mmol/L (98-107) Carbon Dioxide Level 25 mmol/L (21-32) Anion Gap 9 (6-14) Blood Urea Nitrogen 15 mg/dL (8-26) Creatinine 1.1 mg/dL (0.7-1.3) Estimated GFR (Cockcroft-Gault) 84.1 Glucose Level 131 mg/dL (70-99) Calcium Level 9.8 mg/dL (8.5-10.1) Vancomycin Level Trough 10.7 mcg/mL (10.0-20.0) Vancomycin Last Dose Date 12/17/16 Vancomycin Last Dose Time 1800 Microbiology 12/17/16 Gram Stain - Final, Complete Medications Current Medications Vancomycin HCl (Vanco Per Pharmacy) 1 each PRN DAILY PRN MC SEE COMMENTS Last administered on 12/18/16 06:10; Start 12/16/16 at 16:00 Vancomycin HCl 2 gm/Sodium Chloride 500 ml @ 250 mls/hr 1X ONCE IV Last administered on 12/16/16 18:22; Start 12/16/16 at 17:30; Stop 12/16/16 at 19:29; Status DC Oxycodone/ Acetaminophen (Percocet 5/325) 2 tab PRN Q4HRS PRN PO PAIN; Start at 18:00 Hydromorphone HCl (Dilaudid) 0.4 mg PRN Q4HRS PRN IVP PAIN; Start 12/16/16 at 18 :00 Ondansetron HCl (Zofran) 4 mg PRN Q6HRS PRN IV NAUSEA/VOMITING; Start 12/16/16 at 18:00; Stop 12/17/16 at 13:37; Status DC Vancomycin HCl 1.5 gm/Sodium Chloride 500 ml @ 250 mls/hr Q12H IV Last administered on 12/18/16 06:17; Start 12/17/16 at 06:00 Vancomycin HCl 1 each 1X ONCE MC Last administered on 12/18/16 05:30; Start at 05:30; Stop 12/18/16 at 05:31; Status DC Bupivacaine HCl/ Epinephrine Bitart (Sensorcain-Mpf Epi 0.5%-1:[id number]) 30 ml STK -MED ONCE .ROUTE Last administered on 12/17/16 12:20; Start 12/17/16 at 07:07; Stop 12/17/16 at 07:08; Status DC Sodium Hypochlorite (Dakin'S 1/2 Strength) 1 idalmis 1X ONCE TP ; Start 12/17/16 at 11:45; Stop 12/17/16 at 11:46; Status DC Ondansetron HCl (Zofran) 4 mg PRN Q6HRS PRN IV NAUSEA/VOMITING; Start 12/17/16 at 10:00; Stop 12/17/16 at 10:01; Status DC Fentanyl Citrate (Fentanyl 2ml Vial) 25 mcg PRN Q5MIN PRN IV MILD PAIN; Start 12/17/16 at 10:00; Stop 12/17/16 at 18:00; Status DC Fentanyl Citrate (Fentanyl 2ml Vial) 50 mcg PRN Q5MIN PRN IV MODERATE PAIN; Start 12/17/16 at 10:00; Stop 12/17/16 at 18:00; Status DC Morphine Sulfate 1 mg PRN Q10MIN PRN IV SEVERE PAIN; Start 12/17/16 at 10:00; Stop 12/17/16 at 18:00; Status DC Lidocaine HCl 2 ml PRN 1X PRN ID PRIOR TO IV START; Start 12/17/16 at 10:00; Stop 12/17/16 at 18:00; Status DC Hydromorphone HCl (Dilaudid) 0.5 mg PRN Q10MIN PRN IV SEV PAIN, Second choice; Start 12/17/16 at 10:00; Stop 12/17/16 at 18:00; Status DC Prochlorperazine Edisylate (Compazine) 5 mg PACU PRN PRN IV NAUSEA, MRX1; Start 12/17/16 at 10:00; Stop 12/17/16 at 18:00; Status DC Acetaminophen (Tylenol) 650 mg PRN Q6HRS PRN PO FEVER; Start 12/17/16 at 11:00 Ondansetron HCl (Zofran) 4 mg PRN Q6HRS PRN IV NAUSEA/VOMITING; Start 12/17/16 at 11:00 Hydralazine HCl (Apresoline) 10 mg PRN Q4HRS PRN IVP ELEVATED BP, SEE COMMENTS ; Start 12/17/16 at 11:00 Desflurane (Suprane) 60 ml STK-MED ONCE IH ; Start 12/17/16 at 11:03; Stop at 11:04; Status DC Midazolam HCl (Versed) 2 mg STK-MED ONCE .ROUTE ; Start 12/17/16 at 11:04; Stop 12/17/16 at 11:05; Status DC Fentanyl Citrate (Fentanyl 2ml Vial) 100 mcg STK-MED ONCE .ROUTE ; Start at 11:04; Stop 12/17/16 at 11:05; Status DC Propofol 20 ml @ As Directed STK-MED ONCE IV ; Start 12/17/16 at 11:04; Stop 12/17 at 11:05; Status DC Dexamethasone Sodium Phosphate (Decadron) 20 mg STK-MED ONCE .ROUTE ; Start 12/17 at 11:04; Stop 12/17/16 at 11:05; Status DC Lidocaine HCl (Lidocaine HCl 2% Abboject) 100 mg STK-MED ONCE .ROUTE ; Start 12/17/16 at 11:04; Stop 12/17/16 at 11:05; Status DC Propofol 20 ml @ As Directed STK-MED ONCE IV ; Start 12/17/16 at 12:03; Stop 12/17 at 12:04; Status DC Fentanyl Citrate (Fentanyl 2ml Vial) 100 mcg STK-MED ONCE .ROUTE ; Start at 12:07; Stop 12/17/16 at 12:08; Status DC Active Scripts Active Reported Lisinopril-Hctz 20-12.5 Mg Tab (Lisinopril/Hydrochlorothiazide) 1 Each Tablet 1 Tab PO DAILY Vitals/I & O Vital Sign - Last 24 Hours 12/17/16 12/17/16 12/17/16 12/17/16 12:27 12:40 12:43 12:58 Temp 97.7 97.7 Pulse 74 68 71 Resp 18 15 18 B/P (MAP) 104/59 111/65 108/67 Pulse Ox 100 100 94 O2 Delivery Simple Mask Mask Simple Mask Room Air O2 Flow Rate 10 10 10 12/17/16 12/17/16 12/17/16 12/17/16 13:13 14:00 14:15 14:45 Temp 97.6 97.3 97.6 97.3 Pulse 74 78 Resp 18 18 B/P (MAP) 123/84 110/75 (87) 119/69 (86) 121/71 (88) Pulse Ox 98 97 O2 Delivery Room Air Room Air 512/17/16 12/17/16 12/17/16 15:00 15:30 16:00 16:30 Temp 98.0 97.3 98.0 97.3 Pulse 73 80 Resp 20 18 B/P (MAP) 124/66 (85) 130/71 (90) 128/75 (92) 130/69 (89) Pulse Ox 98 98 O2 Delivery Room Air Room Air 12/17/16 12/17/16 12/17/16 12/17/16 17:00 18:00 20:00 23:09 Temp 98.0 97.2 97.9 98.0 97.2 97.9 Pulse 74 76 78 Resp 20 20 18 B/P (MAP) 127/74 (91) 13/80 (58) 116/68 (84) Pulse Ox 97 98 93 O2 Delivery Room Air Room Air Room Air Room Air 12/18/16 12/18/16 12/18/16 12/18/16 03:15 07:00 07:20 11:00 Temp 98.1 97.9 98.1 98.1 97.9 98.1 Pulse 77 83 81 Resp 18 16 18 B/P (MAP) 122/65 (84) 143/101 (115) 168/104 (125) Pulse Ox 92 97 97 O2 Delivery Room Air Room Air Room Air Room Air Intake and Output 12/17/16 12/17/16 12/18/16 15:00 23:00 07:00 Intake Total 1460 ml 360 ml 300 ml Output Total 3 ml Balance 1460 ml 357 ml 300 ml RACHAEL ALONSO MD December 18, 2016 12:14
[2016-12-18 15:00] VITALS: BP 129/76
[2016-12-18 19:20] VITALS: BP 122/86
[2016-12-18 23:01] VITALS: BP 129/79
[2016-12-19 03:28] VITALS: BP 126/81
[2016-12-19] MEDS: VANCOMYCIN 1.5 GM in IV NORMAL SALINE 500ML BAG 500 ML IV SCH ×2 (06:02→18:22)
[2016-12-19 07:00] VITALS: BP 135/90
--- NOTE | 2016-12-19 09:09 | PDOC ---
LOTUS METZ CAVALRY OFFICER 12/19/16 0909: SURGICAL PROGRESS NOTE Subjective feeling well minimal pain elevating leg Vital Signs Vital Signs Date Time Temp Pulse Resp B/P (MAP) Pulse Ox O2 Delivery O2 Flow Rate FiO2 12/19/16 07:20 Room Air 12/19/16 07:00 97.9 65 20 135/90 (105) 94 97.9 12/18/16 20:00 10.0 I&O Intake and Output 12/19/16 07:00 Intake Total 940 ml Output Total 300 ml Balance 640 ml Intake Oral 840 ml Tube Feeding 100 ml Output Urine Total 300 ml # Voids 5 # Bowel Movements 2 General: Alert, Oriented X3, Cooperative, No acute distress Skin: Other (lle wound clean, surrounding erythema improving) Labs Laboratory Tests Test 12/18/16 05:24 White Blood Count 9.4 x10^3/uL (4.0-11.0) Red Blood Count 4.14 x10^6/uL (4.30-5.70) Hemoglobin 12.4 g/dL (13.0-17.5) Hematocrit 37.8 % (39.0-53.0) Mean Corpuscular Volume 92 fL (79-100) Mean Corpuscular Hemoglobin 30 pg (25-35) Mean Corpuscular Hemoglobin Concent 33 g/dL (31-37) Red Cell Distribution Width 13.5 % (11.5-14.5) Platelet Count 232 x10^3/uL (140-400) Neutrophils (%) (Auto) 75 % (31-73) Lymphocytes (%) (Auto) 16 % (24-48) Monocytes (%) (Auto) 8 % (0-9) Eosinophils (%) (Auto) 0 % (0-3) Basophils (%) (Auto) 1 % (0-3) Neutrophils # (Auto) 7.1 x10^3uL (1.8-7.7) Lymphocytes # (Auto) 1.5 x10^3/uL (1.0-4.8) Monocytes # (Auto) 0.8 x10^3/uL (0.0-1.1) Eosinophils # (Auto) 0.0 x10^3/uL (0.0-0.7) Basophils # (Auto) 0.1 x10^3/uL (0.0-0.2) Sodium Level 140 mmol/L (136-145) Potassium Level 4.3 mmol/L (3.5-5.1) Chloride Level 106 mmol/L (98-107) Carbon Dioxide Level 25 mmol/L (21-32) Anion Gap 9 (6-14) Blood Urea Nitrogen 15 mg/dL (8-26) Creatinine 1.1 mg/dL (0.7-1.3) Estimated GFR (Cockcroft-Gault) 84.1 Glucose Level 131 mg/dL (70-99) Calcium Level 9.8 mg/dL (8.5-10.1) Vancomycin Level Trough 10.7 mcg/mL (10.0-20.0) Vancomycin Last Dose Date 12/17/16 Vancomycin Last Dose Time 1800 Problem List Problems Medical Problems: (1) Cellulitis and abscess of leg Status: Acute Assessment/Plan s/p I&D continue elevation and abx wound care some improvement in cellulitis Problems: JAJA ARCHIBALD MD 12/19/16 0922: SURGICAL PROGRESS NOTE Assessment/Plan Improving cellulitis. Agree with Lalo's assessment and plan. Problems: LOTUS METZ CAVALRY OFFICER December 19, 2016 09:09 JAJA ARCHIBALD MD December 19, 2016 09:22
[2016-12-19 11:00] VITALS: BP 134/88
[2016-12-19] MEDS: VANCOMYCIN PER PHARMACY MC PRN (11:50)
[2016-12-19] MEDS ORDERED: PIP/TAZO PER PHARMACY MC PRN (12:45)
[2016-12-19] MEDS: PIPERACILLIN/TAZOBACTAM 3.375 GM in IV NORMAL SALINE 50ML 50 ML IV SCH ×2 (13:42→17:40)
[2016-12-19 15:00] VITALS: BP 130/79
--- NOTE | 2016-12-19 16:47 | PDOC ---
PROGRESS NOTES Chief Complaint Chief Complaint cellulitis with abcess, left lateral calf HTN plan: fu with sx, i and d on 12/17 cont vanco for now, fu cx hold HTN meds, pain control History of Present Illness History of Present Illness left leg pain is better some redness, erythema persist cx not back yet, add pcn abx for better bacteriocidal is MSSA Vitals Vitals Vital Signs Date Time Temp Pulse Resp B/P (MAP) Pulse Ox O2 Delivery O2 Flow Rate FiO2 12/19/16 15:00 98.1 72 20 130/79 (96) 97 Room Air 98.1 12/18/16 20:00 10.0 Physical Exam General: Alert, Oriented X3, Cooperative, No acute distress Heart: Regular rate, Normal S1 Lungs: Clear Abdomen: Normal bowel sounds, Soft, No tenderness Extremities: Other (left leg with extensive erythema, induration, fluctuance lateral lower leg.) Skin: Other (lle wound clean, surrounding erythema improving) Review of Systems Review of Systems no n.v.d Assessment and Plan Assessmemt and Plan Problems Medical Problems: (1) Cellulitis and abscess of leg Status: Acute Problems: Comment Review of Relevant I have reviewed the following items gita (where applicable) has been applied. Labs Laboratory Tests Test 12/18/16 05:24 White Blood Count 9.4 x10^3/uL (4.0-11.0) Red Blood Count 4.14 x10^6/uL (4.30-5.70) Hemoglobin 12.4 g/dL (13.0-17.5) Hematocrit 37.8 % (39.0-53.0) Mean Corpuscular Volume 92 fL (79-100) Mean Corpuscular Hemoglobin 30 pg (25-35) Mean Corpuscular Hemoglobin Concent 33 g/dL (31-37) Red Cell Distribution Width 13.5 % (11.5-14.5) Platelet Count 232 x10^3/uL (140-400) Neutrophils (%) (Auto) 75 % (31-73) Lymphocytes (%) (Auto) 16 % (24-48) Monocytes (%) (Auto) 8 % (0-9) Eosinophils (%) (Auto) 0 % (0-3) Basophils (%) (Auto) 1 % (0-3) Neutrophils # (Auto) 7.1 x10^3uL (1.8-7.7) Lymphocytes # (Auto) 1.5 x10^3/uL (1.0-4.8) Monocytes # (Auto) 0.8 x10^3/uL (0.0-1.1) Eosinophils # (Auto) 0.0 x10^3/uL (0.0-0.7) Basophils # (Auto) 0.1 x10^3/uL (0.0-0.2) Sodium Level 140 mmol/L (136-145) Potassium Level 4.3 mmol/L (3.5-5.1) Chloride Level 106 mmol/L (98-107) Carbon Dioxide Level 25 mmol/L (21-32) Anion Gap 9 (6-14) Blood Urea Nitrogen 15 mg/dL (8-26) Creatinine 1.1 mg/dL (0.7-1.3) Estimated GFR (Cockcroft-Gault) 84.1 Glucose Level 131 mg/dL (70-99) Calcium Level 9.8 mg/dL (8.5-10.1) Vancomycin Level Trough 10.7 mcg/mL (10.0-20.0) Vancomycin Last Dose Date 12/17/16 Vancomycin Last Dose Time 1800 Microbiology 12/17/16 Gram Stain - Final, Complete Medications Current Medications Vancomycin HCl (Vanco Per Pharmacy) 1 each PRN DAILY PRN MC SEE COMMENTS Last administered on 12/19/16 11:50; Start 12/16/16 at 16:00 Vancomycin HCl 2 gm/Sodium Chloride 500 ml @ 250 mls/hr 1X ONCE IV Last administered on 12/16/16 18:22; Start 12/16/16 at 17:30; Stop 12/16/16 at 19:29; Status DC Oxycodone/ Acetaminophen (Percocet 5/325) 2 tab PRN Q4HRS PRN PO PAIN; Start at 18:00 Hydromorphone HCl (Dilaudid) 0.4 mg PRN Q4HRS PRN IVP PAIN; Start 12/16/16 at 18 :00 Ondansetron HCl (Zofran) 4 mg PRN Q6HRS PRN IV NAUSEA/VOMITING; Start 12/16/16 at 18:00; Stop 12/17/16 at 13:37; Status DC Vancomycin HCl 1.5 gm/Sodium Chloride 500 ml @ 250 mls/hr Q12H IV Last administered on 12/19/16 06:02; Start 12/17/16 at 06:00 Vancomycin HCl 1 each 1X ONCE MC Last administered on 12/18/16 05:30; Start at 05:30; Stop 12/18/16 at 05:31; Status DC Bupivacaine HCl/ Epinephrine Bitart (Sensorcain-Mpf Epi 0.5%-[id number]) 30 ml STK -MED ONCE .ROUTE Last administered on 12/17/16 12:20; Start 12/17/16 at 07:07; Stop 12/17/16 at 07:08; Status DC Sodium Hypochlorite (Dakin'S 1/2 Strength) 1 idalmis 1X ONCE TP ; Start 12/17/16 at 11:45; Stop 12/17/16 at 11:46; Status DC Ondansetron HCl (Zofran) 4 mg PRN Q6HRS PRN IV NAUSEA/VOMITING; Start 12/17/16 at 10:00; Stop 12/17/16 at 10:01; Status DC Fentanyl Citrate (Fentanyl 2ml Vial) 25 mcg PRN Q5MIN PRN IV MILD PAIN; Start 12/17/16 at 10:00; Stop 12/17/16 at 18:00; Status DC Fentanyl Citrate (Fentanyl 2ml Vial) 50 mcg PRN Q5MIN PRN IV MODERATE PAIN; Start 12/17/16 at 10:00; Stop 12/17/16 at 18:00; Status DC Morphine Sulfate 1 mg PRN Q10MIN PRN IV SEVERE PAIN; Start 12/17/16 at 10:00; Stop 12/17/16 at 18:00; Status DC Lidocaine HCl 2 ml PRN 1X PRN ID PRIOR TO IV START; Start 12/17/16 at 10:00; Stop 12/17/16 at 18:00; Status DC Hydromorphone HCl (Dilaudid) 0.5 mg PRN Q10MIN PRN IV SEV PAIN, Second choice; Start 12/17/16 at 10:00; Stop 12/17/16 at 18:00; Status DC Prochlorperazine Edisylate (Compazine) 5 mg PACU PRN PRN IV NAUSEA, MRX1; Start 12/17/16 at 10:00; Stop 12/17/16 at 18:00; Status DC Acetaminophen (Tylenol) 650 mg PRN Q6HRS PRN PO FEVER; Start 12/17/16 at 11:00 Ondansetron HCl (Zofran) 4 mg PRN Q6HRS PRN IV NAUSEA/VOMITING; Start 12/17/16 at 11:00 Hydralazine HCl (Apresoline) 10 mg PRN Q4HRS PRN IVP ELEVATED BP, SEE COMMENTS ; Start 12/17/16 at 11:00 Desflurane (Suprane) 60 ml STK-MED ONCE IH ; Start 12/17/16 at 11:03; Stop at 11:04; Status DC Midazolam HCl (Versed) 2 mg STK-MED ONCE .ROUTE ; Start 12/17/16 at 11:04; Stop 12/17/16 at 11:05; Status DC Fentanyl Citrate (Fentanyl 2ml Vial) 100 mcg STK-MED ONCE .ROUTE ; Start at 11:04; Stop 12/17/16 at 11:05; Status DC Propofol 20 ml @ As Directed STK-MED ONCE IV ; Start 12/17/16 at 11:04; Stop 12/17 at 11:05; Status DC Dexamethasone Sodium Phosphate (Decadron) 20 mg STK-MED ONCE .ROUTE ; Start 12/17 at 11:04; Stop 12/17/16 at 11:05; Status DC Lidocaine HCl (Lidocaine HCl 2% Abboject) 100 mg STK-MED ONCE .ROUTE ; Start 12/17/16 at 11:04; Stop 12/17/16 at 11:05; Status DC Propofol 20 ml @ As Directed STK-MED ONCE IV ; Start 12/17/16 at 12:03; Stop 12/17 at 12:04; Status DC Fentanyl Citrate (Fentanyl 2ml Vial) 100 mcg STK-MED ONCE .ROUTE ; Start at 12:07; Stop 12/17/16 at 12:08; Status DC Piperacillin Sod/ Tazobactam Sod (Zosyn Per Pharmacy) 1 each PRN DAILY PRN MC SEE COMMENTS; Start 12/19/16 at 12:45 Piperacillin Sod/ Tazobactam Sod 3.375 gm/Sodium Chloride 50 ml @ 100 mls/hr Q6HRS IV Last administered on 12/19/16t 13:42; Start 12/19/16 at 13:00 Active Scripts Active Reported Lisinopril-Hctz 20-12.5 Mg Tab (Lisinopril/Hydrochlorothiazide) 1 Each Tablet 1 Tab PO DAILY Vitals/I & O Vital Sign - Last 24 Hours 12/18/16 12/18/16 12/18/16 12/19/16 19:20 20:00 23:01 03:28 Temp 97.9 98.0 98.1 97.9 98.0 98.1 Pulse 79 65 70 Resp 18 18 18 B/P (MAP) 122/86 (98) 129/79 (96) 126/81 (96) Pulse Ox 96 96 97 O2 Delivery Room Air Room Air Room Air Room Air O2 Flow Rate 10.0 12/19/16 12/19/16 12/19/16 12/19/16 07:00 07:20 11:00 15:00 Temp 97.9 98.2 98.1 97.9 98.2 98.1 Pulse 65 72 72 Resp 20 20 20 B/P (MAP) 135/90 (105) 134/88 (103) 130/79 (96) Pulse Ox 94 97 97 O2 Delivery Room Air Room Air Room Air Room Air Intake and Output 12/18/16 12/18/16 12/19/16 15:00 23:00 07:00 Intake Total 200 ml 740 ml Output Total 300 ml Balance 200 ml 440 ml RACHAEL ALONSO MD December 19, 2016 16:47
[2016-12-19 19:09] VITALS: BP 139/90
[2016-12-19 23:12] VITALS: BP 140/93
[2016-12-20] MEDS: PIPERACILLIN/TAZOBACTAM 3.375 GM in IV NORMAL SALINE 50ML 50 ML IV SCH ×4 (00:47→17:00)
[2016-12-20 03:09] VITALS: BP 127/78
[2016-12-20] MEDS: VANCOMYCIN 1.5 GM in IV NORMAL SALINE 500ML BAG 500 ML IV SCH ×2 (06:00→18:12)
[2016-12-20 06:08] LABS: CALCIUM 10.1 mg/dL (8.5-10.1); CREATININE 1.2 mg/dL (0.7-1.3); GFR 76.1; POTASSIUM 3.9 mmol/L (3.5-5.1)
[2016-12-20 07:23] VITALS: BP 126/85
--- NOTE | 2016-12-20 08:49 | PDOC ---
LOTUS METZ CERAMIC PAINTER 12/20/16 0849: SURGICAL PROGRESS NOTE Subjective feeling pretty well pain controlled Vital Signs Vital Signs Date Time Temp Pulse Resp B/P (MAP) Pulse Ox O2 Delivery O2 Flow Rate FiO2 12/20/16 07:23 97.9 65 18 126/85 (99) 98 Room Air 97.9 I&O Intake and Output 12/20/16 07:00 Intake Total 0 ml Balance 0 ml Intake Oral 0 ml # Voids 4 General: Alert, Oriented X3, Cooperative, No acute distress Skin: Other (left leg, erythema similar, slightly better than yesterday, wound clean) Labs Laboratory Tests Test 12/18/16 14:15 12/20/16 05:05 Nasal Screen MRSA (PCR) Negative (Negative) Sodium Level 139 mmol/L (136-145) Potassium Level 3.9 mmol/L (3.5-5.1) Chloride Level 105 mmol/L (98-107) Carbon Dioxide Level 27 mmol/L (21-32) Anion Gap 7 (6-14) Blood Urea Nitrogen 11 mg/dL (8-26) Creatinine 1.2 mg/dL (0.7-1.3) Estimated GFR (Cockcroft-Gault) 76.1 Glucose Level 100 mg/dL (70-99) Calcium Level 10.1 mg/dL (8.5-10.1) Laboratory Tests Test 12/20/16 05:05 Sodium Level 139 mmol/L (136-145) Potassium Level 3.9 mmol/L (3.5-5.1) Chloride Level 105 mmol/L (98-107) Carbon Dioxide Level 27 mmol/L (21-32) Anion Gap 7 (6-14) Blood Urea Nitrogen 11 mg/dL (8-26) Creatinine 1.2 mg/dL (0.7-1.3) Estimated GFR (Cockcroft-Gault) 76.1 Glucose Level 100 mg/dL (70-99) Calcium Level 10.1 mg/dL (8.5-10.1) Problem List Problems Medical Problems: (1) Cellulitis and abscess of leg Status: Acute Assessment/Plan s/p I&D added lovenox dvt proph cellulitis about the same as yesterday, slightly better continue IV abx reeval in AM Problems: JAJA ARCHIBALD MD 12/20/16 1202: SURGICAL PROGRESS NOTE Assessment/Plan Agree with Lalo's assessment and plan. Problems: LOTUS METZ APRN December 20, 2016 08:49 JAJA ARCHIBALD MD December 20, 2016 12:02
[2016-12-20 11:00] VITALS: BP 133/81
[2016-12-20] MEDS: VANCOMYCIN PER PHARMACY MC PRN (13:01)
--- NOTE | 2016-12-20 14:21 | PDOC ---
PROGRESS NOTES Chief Complaint Chief Complaint cellulitis with abcess, left lateral calf HTN plan: fu with sx, i and d on 12/17 cont vanco for now, fu cx hold HTN meds, pain control History of Present Illness History of Present Illness left leg pain is better some redness, erythema is continuing to improved abx broadened yesterday cell count, no cx on staph appearance organism Vitals Vitals Vital Signs Date Time Temp Pulse Resp B/P (MAP) Pulse Ox O2 Delivery O2 Flow Rate FiO2 12/20/16 11:00 98.2 60 20 133/81 (98) 98 Room Air 98.2 Physical Exam Physical Exam clean base to wound, good granulation General: Alert, Oriented X3, Cooperative, No acute distress Heart: Regular rate, Normal S1 Lungs: Clear Abdomen: Normal bowel sounds, Soft, No tenderness Extremities: Other (left leg with extensive erythema, induration, fluctuance lateral lower leg.) Skin: Other (left leg, erythema similar, slightly better than yesterday, wound clean) Labs LABS Laboratory Tests Test 12/20/16 05:05 Sodium Level 139 mmol/L (136-145) Potassium Level 3.9 mmol/L (3.5-5.1) Chloride Level 105 mmol/L (98-107) Carbon Dioxide Level 27 mmol/L (21-32) Anion Gap 7 (6-14) Blood Urea Nitrogen 11 mg/dL (8-26) Creatinine 1.2 mg/dL (0.7-1.3) Estimated GFR (Cockcroft-Gault) 76.1 Glucose Level 100 mg/dL (70-99) Calcium Level 10.1 mg/dL (8.5-10.1) Assessment and Plan Assessmemt and Plan Problems Medical Problems: (1) Cellulitis and abscess of leg Status: Acute Problems: Comment Review of Relevant I have reviewed the following items gita (where applicable) has been applied. Labs Laboratory Tests Test 12/20/16 05:05 Sodium Level 139 mmol/L (136-145) Potassium Level 3.9 mmol/L (3.5-5.1) Chloride Level 105 mmol/L (98-107) Carbon Dioxide Level 27 mmol/L (21-32) Anion Gap 7 (6-14) Blood Urea Nitrogen 11 mg/dL (8-26) Creatinine 1.2 mg/dL (0.7-1.3) Estimated GFR (Cockcroft-Gault) 76.1 Glucose Level 100 mg/dL (70-99) Calcium Level 10.1 mg/dL (8.5-10.1) Laboratory Tests Test 12/20/16 05:05 Sodium Level 139 mmol/L (136-145) Potassium Level 3.9 mmol/L (3.5-5.1) Chloride Level 105 mmol/L (98-107) Carbon Dioxide Level 27 mmol/L (21-32) Anion Gap 7 (6-14) Blood Urea Nitrogen 11 mg/dL (8-26) Creatinine 1.2 mg/dL (0.7-1.3) Estimated GFR (Cockcroft-Gault) 76.1 Glucose Level 100 mg/dL (70-99) Calcium Level 10.1 mg/dL (8.5-10.1) Microbiology 12/17/16 Gram Stain - Final, Complete Medications Current Medications Vancomycin HCl (Vanco Per Pharmacy) 1 each PRN DAILY PRN MC SEE COMMENTS Last administered on 12/20/16 13:01; Start 12/16/16 at 16:00 Vancomycin HCl 2 gm/Sodium Chloride 500 ml @ 250 mls/hr 1X ONCE IV Last administered on 12/16/16 18:22; Start 12/16/16 at 17:30; Stop 12/16/16 at 19:29; Status DC Oxycodone/ Acetaminophen (Percocet 5/325) 2 tab PRN Q4HRS PRN PO PAIN; Start at 18:00 Hydromorphone HCl (Dilaudid) 0.4 mg PRN Q4HRS PRN IVP PAIN; Start 12/16/16 at 18 :00 Ondansetron HCl (Zofran) 4 mg PRN Q6HRS PRN IV NAUSEA/VOMITING; Start 12/16/16 at 18:00; Stop 12/17/16 at 13:37; Status DC Vancomycin HCl 1.5 gm/Sodium Chloride 500 ml @ 250 mls/hr Q12H IV Last administered on 12/20/16 06:00; Start 12/17/16 at 06:00 Vancomycin HCl 1 each 1X ONCE MC Last administered on 12/18/16 05:30; Start at 05:30; Stop 12/18/16 at 05:31; Status DC Bupivacaine HCl/ Epinephrine Bitart (Sensorcain-Mpf Epi 0.5%-1:[id number]) 30 ml STK -MED ONCE .ROUTE Last administered on 12/17/16t 12:20; Start 12/17/16 at 07:07; Stop 12/17/16 at 07:08; Status DC Sodium Hypochlorite (Dakin'S 1/2 Strength) 1 idalmis 1X ONCE TP ; Start 12/17/16 at 11:45; Stop 12/17/16 at 11:46; Status DC Ondansetron HCl (Zofran) 4 mg PRN Q6HRS PRN IV NAUSEA/VOMITING; Start 12/17/16 at 10:00; Stop 12/17/16 at 10:01; Status DC Fentanyl Citrate (Fentanyl 2ml Vial) 25 mcg PRN Q5MIN PRN IV MILD PAIN; Start 12/17/16 at 10:00; Stop 12/17/16 at 18:00; Status DC Fentanyl Citrate (Fentanyl 2ml Vial) 50 mcg PRN Q5MIN PRN IV MODERATE PAIN; Start 12/17/16 at 10:00; Stop 12/17/16 at 18:00; Status DC Morphine Sulfate 1 mg PRN Q10MIN PRN IV SEVERE PAIN; Start 12/17/16 at 10:00; Stop 12/17/16 at 18:00; Status DC Lidocaine HCl 2 ml PRN 1X PRN ID PRIOR TO IV START; Start 12/17/16 at 10:00; Stop 12/17/16 at 18:00; Status DC Hydromorphone HCl (Dilaudid) 0.5 mg PRN Q10MIN PRN IV SEV PAIN, Second choice; Start 12/17/16 at 10:00; Stop 12/17/16 at 18:00; Status DC Prochlorperazine Edisylate (Compazine) 5 mg PACU PRN PRN IV NAUSEA, MRX1; Start 12/17/16 at 10:00; Stop 12/17/16 at 18:00; Status DC Acetaminophen (Tylenol) 650 mg PRN Q6HRS PRN PO FEVER; Start 12/17/16 at 11:00 Ondansetron HCl (Zofran) 4 mg PRN Q6HRS PRN IV NAUSEA/VOMITING; Start 12/17/16 at 11:00 Hydralazine HCl (Apresoline) 10 mg PRN Q4HRS PRN IVP ELEVATED BP, SEE COMMENTS ; Start 12/17/16 at 11:00 Desflurane (Suprane) 60 ml STK-MED ONCE IH ; Start 12/17/16 at 11:03; Stop at 11:04; Status DC Midazolam HCl (Versed) 2 mg STK-MED ONCE .ROUTE ; Start 12/17/16 at 11:04; Stop 12/17/16 at 11:05; Status DC Fentanyl Citrate (Fentanyl 2ml Vial) 100 mcg STK-MED ONCE .ROUTE ; Start at 11:04; Stop 12/17/16 at 11:05; Status DC Propofol 20 ml @ As Directed STK-MED ONCE IV ; Start 12/17/16 at 11:04; Stop 12/17 at 11:05; Status DC Dexamethasone Sodium Phosphate (Decadron) 20 mg STK-MED ONCE .ROUTE ; Start 12/17 at 11:04; Stop 12/17/16 at 11:05; Status DC Lidocaine HCl (Lidocaine HCl 2% Abboject) 100 mg STK-MED ONCE .ROUTE ; Start 12/17/16 at 11:04; Stop 12/17/16 at 11:05; Status DC Propofol 20 ml @ As Directed STK-MED ONCE IV ; Start 12/17/16 at 12:03; Stop 12/17 at 12:04; Status DC Fentanyl Citrate (Fentanyl 2ml Vial) 100 mcg STK-MED ONCE .ROUTE ; Start at 12:07; Stop 12/17/16 at 12:08; Status DC Piperacillin Sod/ Tazobactam Sod (Zosyn Per Pharmacy) 1 each PRN DAILY PRN MC SEE COMMENTS; Start 12/19/16 at 12:45 Piperacillin Sod/ Tazobactam Sod 3.375 gm/Sodium Chloride 50 ml @ 100 mls/hr Q6HRS IV Last administered on 12/20/16t 11:21; Start 12/19/16 at 13:00 Enoxaparin Sodium (Lovenox 40mg Syringe) 40 mg Q24H SQ ; Start 12/20/16 at 15:00 Active Scripts Active Reported Lisinopril-Hctz 20-12.5 Mg Tab (Lisinopril/Hydrochlorothiazide) 1 Each Tablet 1 Tab PO DAILY Vitals/I & O Vital Sign - Last 24 Hours 12/19/16 12/19/16 12/19/16 12/19/16 15:00 19:09 20:00 23:12 Temp 98.1 98.4 98.1 98.1 98.4 98.1 Pulse 72 67 72 Resp 20 18 18 B/P (MAP) 130/79 (96) 139/90 (106) 140/93 (109) Pulse Ox 97 97 98 O2 Delivery Room Air Room Air Room Air Room Air 12/20/16 12/20/16 12/20/16 12/20/16 03:09 07:23 07:30 11:00 Temp 97.9 97.9 98.2 97.9 97.9 98.2 Pulse 62 65 60 Resp 18 18 20 B/P (MAP) 127/78 (94) 126/85 (99) 133/81 (98) Pulse Ox 97 98 98 O2 Delivery Room Air Room Air Room Air Room Air Intake and Output 12/19/16 12/19/16 12/20/16 15:00 23:00 07:00 Intake Total 0 ml Balance 0 ml RACHAEL ALONSO MD December 20, 2016 14:21
[2016-12-20 15:00] VITALS: BP 155/92
[2016-12-20] MEDS ORDERED: ENOXAPARIN 40 MG/0.4 ML SYRINGE. SQ SCH (15:00)
[2016-12-20 19:48] VITALS: BP 136/80
[2016-12-20 23:18] VITALS: BP 140/80
[2016-12-21] MEDS: PIPERACILLIN/TAZOBACTAM 3.375 GM in IV NORMAL SALINE 50ML 50 ML IV SCH ×3 (00:22→11:59)
[2016-12-21 03:12] VITALS: BP 136/93
[2016-12-21] MEDS: VANCOMYCIN 1.5 GM in IV NORMAL SALINE 500ML BAG 500 ML IV SCH (06:00)
[2016-12-21 07:00] VITALS: BP 139/97
--- NOTE | 2016-12-21 08:40 | PDOC ---
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 METZ COOK CANDY 12/21/16 0840: SURGICAL PROGRESS NOTE Subjective tolerating diet pain with dressing changes Vital Signs Vital Signs Date Time Temp Pulse Resp B/P (MAP) Pulse Ox O2 Delivery O2 Flow Rate FiO2 12/21/16 07:00 97.9 81 16 139/97 (111) 95 Room Air 97.9 I&O Intake and Output 12/21/16 06:59 Intake Total 240 ml Balance 240 ml Intake Oral 240 ml # Bowel Movements 1 General: Alert, Oriented X3, Cooperative, No acute distress Extremities: Other (lle--no induration, wound packed, clean, some erythema however improving ) Labs Laboratory Tests Test 12/20/16 05:05 Sodium Level 139 mmol/L (136-145) Potassium Level 3.9 mmol/L (3.5-5.1) Chloride Level 105 mmol/L (98-107) Carbon Dioxide Level 27 mmol/L (21-32) Anion Gap 7 (6-14) Blood Urea Nitrogen 11 mg/dL (8-26) Creatinine 1.2 mg/dL (0.7-1.3) Estimated GFR (Cockcroft-Gault) 76.1 Glucose Level 100 mg/dL (70-99) Calcium Level 10.1 mg/dL (8.5-10.1) Problem List Problems Medical Problems: (1) Cellulitis and abscess of leg Status: Acute Assessment/Plan s/p I&D wound care, abx improving, will review with Dr Caceres for any needs of CT to reeval deeper abscess Problems: LORENE CACERES MD 12/21/16 1157: SURGICAL PROGRESS NOTE Assessment/Plan addendum leg looks great--erythema and swelling gone. expected firmness around I and D site. wound clean/ a/p dc home with 7 days of oral clinda pt to do dressing changes at home f/u with me in 2 weeks. Problems: LOTUS METZ APRN December 21, 2016 08:40 LORENE CACERES MD December 21, 2016 11:57
[2016-12-21 10:59] VITALS: BP 135/84
[2016-12-21] MEDS ORDERED: CLIN300C86 PO (12:00)
--- NOTE | 2016-12-21 13:32 | PATHOLOGY ---
PATHOLOGY REPORT * * * * * * * * FINAL DIAGNOSIS: Skin, left leg: - Abscess. COMMENT: There is no evidence of malignancy. (JPM:; d/t: 12/21/16) REPORT ELECTRONICALLY SIGNED BY: Rafiq Rodriguez M.D. DATE/TIME: 12/21/2016 13:23 * * * * * * * * GROSS PATHOLOGY: The specimen is received in formalin, labeled "Pipo Oropeza, left leg abscess". Received is an unoriented excision of skin with attached subcutaneous tissue measuring 2.0 x 1.0 x 0.3 cm. The epidermal surface displays a discolored dark graydark brown appearance. Sectioning reveals a discolored, pale fajardo cut surface. No solid masses or nodules are identified. Reinforced Concrete Inspector sections are submitted in cassette A1. (SNA; 12/18/2016) INITIAL CPT CODE(S): A; 29262 Professional services performed [place] [address] Technical services performed by [facility] at [address] [place] [address] [address], [place] [address]. SPECIMEN(S) RECEIVED: A.Left leg abscess CLINICAL HISTORY: Left lower leg abscess PATIENT: PIPO OROPEZA /AGE: 109/06/1960 (Age: 56) PATIENT #: [id number] ALT CASE #: SPECIMEN COLLECTION DATE: 12/17/2016 SPECIMEN RECEIVED DATE: 12/17/2016 [facility] - [address] [place] [address] - PHONE: [phone] * * * END OF REPORT * * *
[2016-12-21] MEDS ORDERED: OXYC1TAB7 PO (13:38)
[2016-12-21] MEDS: VANCOMYCIN PER PHARMACY MC PRN (13:42)
--- NOTE | 2016-12-26 02:13 | DS ---
DATE OF DISCHARGE: 12/21/2016 CHIEF COMPLAINT: Cellulitis with abscess, left calf. HOSPITAL COURSE: The patient is a 56-year-old gentleman who presented to the hospital with severe swelling and pain in his left calf. He was evaluated by Surgery and an I and D was performed on 12/17/2016. This was packed and treated with antibiotics including vancomycin. Antibiotic regimen was guided by infectious disease consult. He received oral pain medications with good control. History of hypertension was actually not confirmed here in the hospital. Blood pressure medications had to be held and actually had a good blood pressure during his admission. DISCHARGE DISPOSITION: To home. DISCHARGE CONDITION: Improved. DISCHARGE DIAGNOSES: Lower extremity cellulitis/abscess. DISCHARGE MEDICATIONS: Please refer to MAR. DISCHARGE INSTRUCTIONS: The patient will follow up with Surgery in 1-2 weeks. He will dress his own leg daily. FENG BELTRAN MD DR: MYRNA/nts JOB#: [id number] / [id number] EMMANUEL
== END 2016-12-21 14:40 | disposition home or self-care (01) | DRG 572 ==
LOC: 4 NORTH 14:47
PROVIDERS: ADMIT Internal Medicine; ATTEND Internal Medicine
PROC: 0J9P0ZZ Drainage of Left Lower Leg Subcutaneous Tissue and Fascia, Open Approach (ICD-10-PCS; 2016-12-17)
PROC: 0JBP0ZZ Excision of Left Lower Leg Subcutaneous Tissue and Fascia, Open Approach (ICD-10-PCS; principal; 2016-12-17 11:45)
DX: L03.116 Cellulitis of left lower limb (principal); L02.416 Cutaneous abscess of left lower limb; I10 Essential (primary) hypertension; Z82.49 Family history of ischemic heart disease and other diseases of the circulatory system
CPT/HCPCS: 36415; 80048; 80202; 85027; 87071; 87075; 87186; 87205; 87641; 88304; J1100; J1650; J2250; J2543; J2704; J3010; J3370; J3490; J7040; J7120